=== PATIENT | female | born 1990 | race Hispanic/Latino ===

== ENCOUNTER 2018-03-08 10:46 | Emergency (ER) | payer OTHER ==
[~2018-03-08] VITALS: Ht 167.6 cm; Wt 99.8 kg
--- OUTSIDE RECORDS SUMMARY | 2018-03-08 10:49 | XMS REPORT ---
Author Organization Unknown Address [address] [place] [address] Phone [phone] Care Team Providers Care Finance Consultant Name Role Phone Prosper Choudhury Jr Unavailable Unavailable Allergies Code Code System Name Reaction Severity Status Onset NKDA Medications Name Status Start Date Stop Date amoxicillin 500 mg capsule Completed 02/05/2018 escitalopram 10 mg tablet Active Not available Fluarix Quad [id number] (PF) 60 mcg (15 mcg x 4)/0.5 mL IM syringe Completed 02/05/2018 fluticasone 50 mcg/actuation nasal spray,suspension Active Not available ibuprofen 800 mg tablet Completed 02/05/2018 loratadine 10 mg tablet Take 1 tablet every day by oral route for 30 days. Active Not available methylprednisolone 4 mg tablets in a dose pack Active Not available NuvaRing 0.12 mg -0.015 mg/24 hr vaginal Insert 1 vaginal ring every 3 weeks by vaginal route for 28 days. Active Not available omeprazole 20mg po 4 x/ week Active Not available omeprazole 40 mg capsule,delayed release Active Not available oseltamivir 75 mg capsule Completed 02/05/2018 Polytrim 10,000 unit-1 mg/mL eye drops INSTILL 1 DROP INTO both EYE(S) BY OPHTHALMIC ROUTE EVERY 6 HOURS x 7 days Active Not available propranolol 40 mg tablet Completed 02/05/2018 sumatriptan 50 mg tablet Completed 02/05/2018 Problems Name Status Onset Date Source Migraine Active 02/05/2018 Procedures Notes: Patient indicated no previous surgeries on (02/12/2018) Lab Results Date Name Specimen Result Interpretation Description Value Range Status Address 02/05/2018 CBC W/ Auto Diff High Wbc 10.82 x10*3/L 3.98-10.04 x10 *3/L Final [facility]: [address] Rbc 4.79 10*12/L 3.93-5.22 10*12/L Final [facility]: [address] Hemoglobin 14.10 g/dL 11.20-15.70 g/dL Final [facility]: [address] [place] Hematocrit 40.1 % 34.1-44.9 % Final [facility]: [address] [place] Mcv 83.7 fL 80.0-100.0 fL Final [facility]: [address] [place] Mch 29.4 pg 25.6-32.2 pg Final [facility]: [address] [place] Mchc 35.2 g/dL 32.2-35.5 g/dL Final [facility]: [address] [place] RDW-SD 39.8 fL 36.4-46.3 fL Final [facility] [address] [facility] Plate[facility] Count 323.0 k/uL 182.0-369.0 k/uL Final [facility] [address] [facility] Mpv 10.1 fL 7.5-11.5 fL Final [facility]: [address] [place] Neut% 55.2 % 34.0-71.1 % Final [facility] [address] [facility] Lymph% 36.4 % 19.3-51.7 % Final [facility] [address] [facility] Mon% 6.3 % 4.7-12.5 % Final [facility] [address] [facility] Eos% 1.8 % 0.7-5.8 % Final [facility] [address] [facility] Baso% 0.3 % 0.1-1.2 % Final [facility]: [address] [place] Neut# 6.0 x10*3/L 1.6-6.1 x10*3/L Final [facility]: [address] [place] High Lymph# 3.9 x10*3/L 1.2-3.7 x10*3/L Final [facility] [address] [facility] Mon# 0.7 x10*3/L 0.2-0.9 x10*3/L Final [facility]: [address] [place] [address] [place] Eos# 0.20 x10*3/L 0.04-0.36 x10*3/L Final [facility]: [address] [place] Baso# 0.03 x10*3/L 0.01-0.08 x10*3/L Final [facility]: [address] 02/05/2018 CMP, Serum or Plasma High Alt 271 U/L 0-55 U/L Final [facility]: [address] High Ast 120 U/L 5-34 U/L Final [facility]: [address] Bun 11.4 mg/dL 7.0-18.7 mg/dL Final [facility]: [address] Alk Phos 94 unit/L 40-150 unit/L Final [facility]: [address] Glucose 77 mg/dL 70-99 mg/dL Final [facility]: [address] Low Albumin 3.4 g/dL 3.5-5.0 g/dL Final [facility]: [address] Creatinine 0.66 mg/dL 0.57-1.11 mg/dL Final [facility]: [address] eGFR Non- >60 mL/min/1.73m2 >60 mL/min/ 1.73m2 Final [facility]: [address] Total Bilirubin 0.3 mg/dL 0.2-1.2 mg/dL Final [facility]: [address] eGFR - >60 mL/min/1.73m2 >60 mL/min/1.73m2 Final [facility]: [address] Sodium 140 mEq/L 136-145 mEq/L Final [facility]: [address] Potassium 4.2 mEq/L 3.5-5.1 mEq/L Final [facility]: [address] Chloride 106 mmol/L 98-107 mmol/L Final [facility]: [address] Total Protein 8.1 g/dL 6.4-8.3 g/dL Final [facility]: [address] Calcium 9.5 mg/dL 8.4-10.2 mg/dL Final [facility]: [address] Co2 23.2 mmol/L 22.0-29.0 mmol/L Final [facility]: [address] Anion Gap 11 calc Final [facility]: [address] [place] [address], [place] 02/05/2018 Lipid Panel, Serum High Hdl 64 mg/dL 40-60 mg/dL Final [facility]: [address] Triglyceride 93 mg/dL 0-149 mg/dL Final [facility]: [address] VLDL Calc. 19 mg/dL Final [facility]: [address] cholesterol/HDL Ratio 2.8 mg/dL Final [facility]: [address] non-HDL Cholesterol Calc. 117 mg/dL 0-160 mg/dL Final [facility]: [address] Cholesterol 181 mg/dL 0-199 mg/dL Final [facility]: [address] LDL Calc. 98 mg/dL 0-130 mg/dL Final [facility]: [address] [place] [address], [place] 02/05/2018 TSH, Serum or Plasma Tsh 2.232 uIU/mL 0.350-4.940 uIU /mL Final [facility]: [address] 02/05/2018 Vitamin D, 25-Hydroxy, Total, Serum Low Vitamin D 25OH 17.8 NG/mL 30.0-96.0 NG/mL Final [facility]: [address] 02/05/2018 HbA1C (Hemoglobin a1C), Blood A1C W/eag 5.7 % 1.0- 5.7 % Final [facility]: [address] Average Blood Glucose 117 mg/dL Final [facility]: [address] 02/05/2018 Urinalysis, Dipstick Color Color light yellow [facility]: [address] [facility], [place] Color Appearance clear [facility]: [address] [place] [address] , [place] Color Glucose negative [facility]: [address] [place] [address] , [place] Color Bilirubin small [facility]: [address] [facility] 5 , [place] Color Ketones negative [facility]: [address] [place] [address] , [place] Color Specific [place] 1.030 [facility]: [address] [facility] 5, [place] Color Blood negative [facility]: [address] [facility] 5, [place] Color PH 5.5 [facility]: [address] [place] [address], [place] Color Protein trace [facility]: [address] [place] [address], [place] Color Urobilinogen 0.2 [facility]: [address] [place] [address] , [place] Color Nitrites negative [facility]: [address] [place] [address], [place] Color Leukocytes negative [facility]: [address] [place] [address], [place] Past Encounters 02/12/2018 Elevated Liver Enzymes Level; Acute Conjunctivitis; Vitamin D Deficiency Morena Lima MD: [address] [id number], Ph. 02/05/2018 Adult Health Examination; Body Mass Index 30+ - Obesity; Obesity; Migraine; Depression Screening; Acanthosis Nigricans; Pain in Right Knee; Gastritis; Single Major Depressive Episode; Seasonal Allergic Rhinitis Morena Lima MD: [facility] [address] [address], [place]. Social History Smoking Status Never Smoker Vaccine List Vaccine Type Tdap 11/16/2016 Plan of Care Reminders Provider Appointments None recorded. Lab None recorded. Referral None recorded. Procedures None recorded. Surgeries None recorded. Imaging None recorded. Vitals 02/12/2018 01:00PM Est Patient Height Weight BMI Blood Pressure 5 ft 6 in 225 lbs 36.3 kg/m2 110/60 mm[Hg] 02/05/2018 08:30AM [employer]OM[employer]IVE [employer]AILER/EST CPX Height Weight BMI Blood Pressure 5 ft 6 in 224 lbs 36.2 kg/m2 110/76 mm[Hg]
[2018-03-08 11:22] LABS: BASOPHILS % 0.3 % (0.0-1.0); EOSINOPHILS # (AUTO) 0.1 (0.0-0.4); EOSINOPHILS % 0.7 % (0.0-6.0); HEMATOCRIT 42.2 % (34.2-44.1); HEMOGLOBIN 14.7 g/dL (12.0-16.0); LYMPHOCYTES # (AUTO) 1.6 (1.0-3.2); LYMPHOCYTES % 14.4 % (18.0-39.1); MEAN CORPUSCULAR HEMOGLOBIN 28.8 pg (28-32); MEAN CORPUSCULAR HGB CONC 34.8 g/dL (31-35); MEAN CORPUSCULAR VOLUME 82.7 fL (81-99); MONOCYTES # (AUTO) 0.3 (0.2-0.8); MONOCYTES % 3.1 % (4.4-11.3); NEUTROPHILS # (AUTO) 8.8 (2.1-6.9); NEUTROPHILS % 81.1 % (38.7-80.0); PLATELET COUNT 339 x10e3/uL (140-360); RED CELL DISTRIBUTION WIDTH 13.2 % (11.7-14.4)
[2018-03-08] MEDS ORDERED: SODIUM CHLORIDE 0.9% 1000ML 1,000 ML IV SCH (11:45)
[2018-03-08 11:52] LABS: ALANINE AMINOTRANSFERASE 286 IU/L (0-55); ALBUMIN 3.6 g/dL (3.5-5.0); ALBUMIN/GLOBULIN RATIO 0.6 (0.8-2.0); ALKALINE PHOSPHATASE 119 IU/L (40-150); BLOOD UREA NITROGEN 13 mg/dL (7-26); BUN/CREATININE RATIO 18 (6-25); CALCIUM 10.3 mg/dL (8.4-10.2); CARBON DIOXIDE 22 mmol/L (22-29); CHLORIDE 104 mmol/L (98-107); CREATININE, SERUM 0.73 mg/dL (0.57-1.11); EST GLOMERULAR FILTRATION RATE > 60 ML/MIN (60-); GLUCOSE 97 mg/dL (74-118); LIPASE 21 U/L (8-78); SODIUM 137 mmol/L (136-145)
[2018-03-08 12:14] LABS: PREGNANCY TEST, URINE NEGATIVE (NEGATIVE)
[2018-03-08 12:16] LABS: CLARITY,URINE CLEAR (CLEAR); COLOR,URINE YELLOW (YELLOW); LEUKOCYTE ESTERASE ,URINE NEGATIVE (NEGATIVE); NITRITE,URINE NEGATIVE (NEGATIVE); URINE UROBILINOGEN 0.2 mg/dL (0.2 - 1)
[2018-03-08 12:17] LABS: BILIRUBIN,URINE NEGATIVE (NEGATIVE); KETONES,URINE NEGATIVE (NEGATIVE); PROTEIN,URINE DIPSTICK NEGATIVE (NEGATIVE)
[2018-03-08 12:36] LABS: BACTERIA,URINE RARE /HPF; EPITHELIAL CELLS,URINE FEW /LPF; MUCUS,URINE FEW (RARE)
--- NOTE | 2018-03-08 13:05 | Diagnostic Imaging Report ---
PROCEDURE:GALLBLADDER ULTRASOUND COMPARISON:None. INDICATIONS:RUQ PAIN FINDINGS: Liver: 15.0 cm. Increased hepatic parenchymal echogenicity. No focal mass. Main portal vein: 8.0 mm. Hepatopedal flow. Gallbladder: No echogenic calculi, gallbladder wall thickening, or pericholecystic fluid. Common Bile Duct: 2.0 mm. No echogenic filling defect. Sonographic French's sign: Negative. Right kidney: 10.5 cm. No solid or cystic mass, echogenic calculi, or hydronephrosis. Normal parenchymal echogenicity. The pancreas was insufficiently visualized for comment secondary to overlying bowel gas. Inferior vena cava: Normal. Aorta: Normal. Ascites: None. CONCLUSION: 1. No acute sonographic abnormality. 2. Hepatic steatosis. Dictated by: Gomez Bear M.D. on 03/08/2018 at 13:06 Electronically approved by: Gomez Bear M.D. on 03/08/2018 at 13:06
[2018-03-08] MEDS ORDERED: MORPHINE SULFATE 2 MG/ML SYR IV STA (13:14)
[2018-03-08] MEDS ORDERED: ONDANSETRON HCL 4 MG ORAL DISINTEGRATING TAB PO ONE (13:15)
--- NOTE | 2018-03-08 13:17 | Diagnostic Imaging Report ---
PROCEDURE: CT ABDOMEN AND PELVIS WITHOUT CONTRAST TECHNIQUE: The abdomen and pelvis were scanned utilizing a multidetector helical scanner from the diaphragm to the lesser trochanter. No IV contrast was administered as per physician request. Coronal and sagittal multiplanar reformations were obtained. COMPARISON: None. INDICATIONS: RIGHT FLANK PAIN FINDINGS: ABSENCE OF INTRAVENOUS CONTRAST DECREASES SENSITIVITY FOR DETECTION OF FOCAL LESIONS AND VASCULAR PATHOLOGY. LOWER THORAX: Normal. HEPATOBILIARY: No focal hepatic lesions. No biliary ductal dilatation. SPLEEN: No splenomegaly. PANCREAS: No focal masses or ductal dilatation. ADRENALS: No adrenal nodules. KIDNEYS/URETERS: No hydronephrosis, stones, or solid mass lesions. PELVIC ORGANS/BLADDER: Unremarkable. PERITONEUM / RETROPERITONEUM: No free air or fluid. LYMPH NODES: No lymphadenopathy. VESSELS: Unremarkable. GI TRACT: No distention or wall thickening. Normal appendix. Moderate amount of retained feces limits intraluminal evaluation of the colon. BONES AND SOFT TISSUES: Unremarkable. IMPRESSION: No acute abnormality of the abdomen and pelvis. Dictated by: Gomez Bear M.D. on 03/08/2018 at 13:19 Electronically approved by: Gomez Bear M.D. on 03/08/2018 at 13:19
[2018-03-08 14:38] VITALS: BP 126/69
[2018-03-08] MEDS ORDERED: HYDRALAZINE HCL 20 MG/ML VIAL ONE (15:16)
[2018-03-08] MEDS ORDERED: MIDAZOLAM HCL 2 MG/2 ML VIAL ONE (16:03)
[2018-03-08] MEDS ORDERED: HEPARIN SOD/SOD CHLORIDE 2,000 ML ONE (16:04)
[2018-03-08] MEDS ORDERED: FENTANYL CITRATE/PF 100MCG/2 ML INJ ONE (16:04)
[2018-03-08] MEDS ORDERED: IOPAMIDOL 300MG/ML 100 ML INFUS..BTL IV ONE (16:04)
[2018-03-08] MEDS ORDERED: LIDOCAINE HCL 2% LOCAL 20 ML VIAL ONE (16:04)
[2018-03-08] MEDS ORDERED: CLOPIDOGREL BISULFATE 75 MG TAB ONE ×2 (16:38→16:39)
[2018-03-08] MEDS ORDERED: ASPIRIN 325 MG TAB ONE (16:39)
[2018-03-08] MEDS ORDERED: BIVALIRUDIN 250 MG/VIAL IV ONE (16:46)
[2018-03-08] MEDS ORDERED: SODIUM CHLORIDE 0.9% 100 ML 100 ML ONE (16:47)
[2018-03-08] MEDS ORDERED: ONDANSETRON HCL INJ 2 MG/ML VIAL ONE (17:31)
== END 2018-03-08 14:20 | disposition home or self-care (01) ==
LOC: ER 10:46
DX: R10.11 Right upper quadrant pain (principal); R74.0 Nonspecific elevation of levels of transaminase and lactic acid dehydrogenase [LDH]
CPT/HCPCS: 36415; 74176; 76705; 80053; 81001; 81025; 83690; 85025; 99284; J0360; J0583; J2270; J2405; J7030; Q9967; J2001; J2250